=== PATIENT | female | born 1985 | race African-American/Black ===

== ENCOUNTER 2016-12-14 12:43 | Emergency (ER) | payer MEDICAID ==
[2016-12-14] MEDS ORDERED: SULFAMETH/TRIMETH DS 800/160 MG TABLET PO STA (13:14)
[2016-12-14] MEDS ORDERED: cefTRIAXone 1 GM VIAL IM STA (13:14)
[2016-12-14] MEDS ORDERED: LIDOCAINE-MPF 1% 5 ML VIAL ONE (13:20)
[2016-12-14] MEDS ORDERED: SULFAMETH/TRIMETH DS 800/160 MG TABLET PO ONE (13:20)
[2016-12-14] MEDS ORDERED: cefTRIAXone 1 GM VIAL ONE (13:20)
== END 2016-12-14 13:35 | disposition home or self-care (01) ==
DX: N75.1 Abscess of Bartholin's gland (principal); R03.0 Elevated blood-pressure reading, without diagnosis of hypertension; F17.200 Nicotine dependence, unspecified, uncomplicated
CPT/HCPCS: 96372; 99283; A9270

== ENCOUNTER 2017-01-27 23:45 | Emergency (ER) | payer MEDICAID ==
[2017-01-28] MEDS ORDERED: AZITHROMYCIN 250 MG TABLET PO STA (01:53)
[2017-01-28] MEDS ORDERED: cefTRIAXone 250 MG VIAL IM STA (01:53)
[2017-01-28] MEDS ORDERED: cefTRIAXone 250 MG VIAL ONE (02:05)
[2017-01-28] MEDS ORDERED: LIDOCAINE 1% 2 ML VIAL ONE (02:05)
[2017-01-28] MEDS ORDERED: AZITHROMYCIN 250 MG TABLET PO ONE (02:05)
== END 2017-01-28 02:19 | disposition home or self-care (01) ==
DX: Z20.2 Contact with and (suspected) exposure to infections with a predominantly sexual mode of transmission (principal); F17.200 Nicotine dependence, unspecified, uncomplicated
CPT/HCPCS: 81003; 81025; 87491; 87591; 96372; 99283; A9270

== ENCOUNTER 2017-02-24 09:03 | Emergency (ER) | payer MEDICAID ==
[2017-02-24] MEDS ORDERED: DEXAMETHASONE 10 MG/ML VIAL ONE (09:11)
[2017-02-24] MEDS ORDERED: HYDROmorphone 1 MG/ML SYRINGE ONE (09:11)
[2017-02-24] MEDS ORDERED: PROMETHAZINE 25 MG/1 ML VIAL ONE (09:11)
== END 2017-02-24 09:31 | disposition home or self-care (01) ==
DX: J06.9 Acute upper respiratory infection, unspecified (principal); F17.200 Nicotine dependence, unspecified, uncomplicated; Z91.5 Personal history of self-harm
CPT/HCPCS: 99283; J1170